=== PATIENT | male | born 1945 | race Caucasian/White ===

== ENCOUNTER 2017-10-07 20:38 | Emergency (ER) | payer OTHER ==
[~2017-10-07] VITALS: Ht 172.7 cm; Wt 115.7 kg
[2017-10-07 22:44] VITALS: BP 156/82
== END 2017-10-07 22:45 | disposition home or self-care (01) ==
LOC: EME 20:38
DX: S00.03XA Contusion of scalp, initial encounter (principal); S20.211A Contusion of right front wall of thorax, initial encounter; S70.01XA Contusion of right hip, initial encounter; M48.02 Spinal stenosis, cervical region; M43.12 Spondylolisthesis, cervical region; W01.0XXA Fall on same level from slipping, tripping and stumbling without subsequent striking against object, initial encounter
CPT/HCPCS: 70450; 71046; 72125; 72170; 99281; 99284